=== PATIENT | male | born 1960 | race Two or more races ===

== ENCOUNTER 2021-09-19 11:18 | Emergency (ER) | payer OTHER ==
[2021-09-19 11:30] VITALS: BP 140/92; PULSE 60; TEMP 98; BMI 35.4
[2021-09-19] MEDS ORDERED: DIPHTH,PERTUSS(ACELL),TET 0.5 ML DISP.SYRIN IM ONE ×2 (11:47→12:11)
[2021-09-19] MEDS ORDERED: IBUPROFEN 600 MG TABLET (FP) PO ONE ×2 (11:48→12:10)
== END 2021-09-19 12:19 | disposition home or self-care (01) ==
LOC: FER 11:18
PROC: 3E0234Z Introduction of Serum, Toxoid and Vaccine into Muscle, Percutaneous Approach (ICD-10-PCS; principal; 2021-09-19)
DX: S61.217A Laceration without foreign body of left little finger without damage to nail, initial encounter (principal); W26.8XXA Contact with other sharp object(s), not elsewhere classified, initial encounter
CPT/HCPCS: 73130-TC-LT-FY; 90471; 90715; 99283-25

== ENCOUNTER 2024-01-17 17:15 | Emergency (ER) | payer OTHER ==
[2024-01-17 17:29] VITALS: BP 156/93; PULSE 88; RESP 16; TEMP 98.8; BMI 31.4
[2024-01-17] MEDS ORDERED: LIDOCAINE HCL 1%, 10 MG/ML (20ML VIAL) ONE (17:34)
[2024-01-17] MEDS ORDERED: ACETAMINOPHEN 325 MG TABLET (FP) ONE (18:46)
[2024-01-17] MEDS: ACETAMINOPHEN 500 MG TABLET (FP) PO ONE (18:47)
[2024-01-17] MEDS: LIDOCAINE HCL 1%, 10 MG/ML (50 mL VIAL) SQ ONE (18:48)
== END 2024-01-17 19:12 | disposition home or self-care (01) ==
LOC: FER 17:15
DX: S61.012A Laceration without foreign body of left thumb without damage to nail, initial encounter (principal); W26.0XXA Contact with knife, initial encounter
CPT/HCPCS: 73130-TC-LT-FY; 99283-25